=== PATIENT | female | born 1940 | race Hispanic/Latino ===

== ENCOUNTER 2020-09-16 16:30 | Inpatient (IN) | payer MEDICARE ==
[2020-09-21] MEDS ORDERED: Vancomycin 1 GM/200 ML BAG ONE (10:16)
[2020-09-21] MEDS ORDERED: Sodium Chloride 0.9% 100 ML ONE (10:16)
[2020-09-21] MEDS ORDERED: Tranexamic Acid 1,000 MG/10 ML VIAL ONE (10:16)
[2020-09-21] MEDS ORDERED: Fentanyl 100 MCG/2 ML VIAL ONE ×2 (11:03→11:58)
[2020-09-21] MEDS ORDERED: Midazolam HCl 2 mg/2 ml Vial ONE (11:03)
[2020-09-21] MEDS ORDERED: Fentanyl 100 MCG/2 ML VIAL IV PRN (11:46)
[2020-09-21] MEDS ORDERED: Bupivacaine 0.25% HCL 30 ML VIAL ONE (11:47)
[2020-09-21] MEDS ORDERED: EPINEPHrine 1 MG/ML AMP ONE (11:47)
[2020-09-21] MEDS ORDERED: Ropivacaine 0.2% 550 ML 550 ML NERVE BLCK SCH (12:00)
[2020-09-21] MEDS ORDERED: Zolpidem Tartrate 5 MG TAB PO PRN ×2 (12:00→14:08)
[2020-09-21] MEDS ORDERED: traMADol HCl 50 MG TAB PO PRN ×3 (12:00→14:08)
[2020-09-21] MEDS ORDERED: HYDROcodone/Acetaminophen 10/325 mg Tablet PO PRN ×3 (12:00→14:08)
[2020-09-21] MEDS ORDERED: Ondansetron PF 4 MG/2 ML Vial IVP PRN ×2 (12:00→14:08)
[2020-09-21] MEDS ORDERED: Promethazine HCl 25 MG/ML VIAL IM PRN ×3 (12:00→14:08)
[2020-09-21] MEDS ORDERED: Ketorolac Tromethamine 30 MG/ML VIAL ONE (12:06)
[2020-09-21] MEDS ORDERED: Dexamethasone 20 MG/5 ML VIAL ONE (12:06)
[2020-09-21] MEDS ORDERED: Ondansetron PF 4 MG/2 ML Vial ONE (12:06)
[2020-09-21] MEDS ORDERED: PROPOFOL 200 MG/20 ML VIAL ONE (12:06)
[2020-09-21] MEDS ORDERED: PHENYLEPHRINE-NS 100 MCG/ML 10 ML SYRINGE ONE (12:06)
[2020-09-21] MEDS ORDERED: Ropivacaine 2% HCl/PF (20 MG/10 ML VIAL) ONE (12:06)
[2020-09-21] MEDS ORDERED: Bupivacaine HCl 0.5%/Epinephrine 1:200,000/PF 30 ml Vial ONE (12:06)
[2020-09-21] MEDS ORDERED: ePHEDrine 50 MG/ML VIAL ONE (12:06)
[2020-09-21] MEDS ORDERED: Promethazine HCl 25 MG/ML VIAL IVPB PRN (13:41)
[2020-09-21] MEDS ORDERED: Ondansetron HCl/PF 4 MG/2 ML Vial IVP PRN (13:41)
[2020-09-21] MEDS ORDERED: diphenhydrAMINE 25 MG CAP PO PRN (14:08)
[2020-09-21] MEDS ORDERED: Acetaminophen 325 MG TAB PO PRN (14:08)
[2020-09-21] MEDS ORDERED: Fentanyl 100 MCG/2 ML VIAL SLOW IVP PRN ×2 (14:08)
[2020-09-21] MEDS: Dextrose 5 %-0.45 % NaCl 1,000 ML IV SCH (15:40)
[2020-09-21 17:07] VITALS: BMI 22.6
[2020-09-21] MEDS: CEFAZOLIN 2 GM in Premix Bag 1 BAG IVPB SCH (18:02)
[2020-09-21] MEDS: Aspirin 81 mg Enteric Coated Tablet PO SCH (20:34)
[2020-09-21] MEDS: Senokot S 8.6-50 MG TAB PO SCH (20:50)
[2020-09-21] MEDS: Ferrous Gluconate 324 MG TAB PO SCH (20:50)
[2020-09-21] MEDS ORDERED: Vancomycin 1 GM in Premix Bag 1 BAG IVPB SCH (22:00)
[2020-09-22] MEDS: CEFAZOLIN 2 GM in Premix Bag 1 BAG IVPB SCH (01:47)
[2020-09-22] MEDS: Dextrose 5 %-0.45 % NaCl 1,000 ML IV SCH ×3 (04:20→20:42)
[2020-09-22] MEDS: HYDROcodone/Acetaminophen 10/325 mg Tablet PO PRN ×2 (05:31→17:37)
[2020-09-22 06:09] LABS: Mean Corpuscular Hemoglobin 29.5 pg (27.0-31.0); Mean Corpuscular Volume 89.4 fL (78.0-98.0); Mean Platelet Volume 7.7 fL (7.4-10.4); Platelet Count 202 thou/uL (130-400); RBC Distribution Width 11.3 % (11.5-14.5); Red Blood Cell (RBC) Count 4.07 mill/uL (4.20-5.40); White Blood Cell (WBC) Count 14.9 thou/uL (4.8-10.8)
[2020-09-22] MEDS: Aspirin 81 mg Enteric Coated Tablet PO SCH ×2 (09:22→20:31)
[2020-09-22] MEDS: Multivitamin W/ Minerals 1 TAB PO SCH (09:22)
[2020-09-22] MEDS: Senokot S 8.6-50 MG TAB PO SCH ×2 (09:22→20:42)
[2020-09-22] MEDS: Ferrous Gluconate 324 MG TAB PO SCH ×2 (09:22→20:32)
[2020-09-23 06:02] LABS: Hemoglobin 11.6 g/dL (12.0-16.0); Mean Corpuscular HGB CONC 34.2 g/dL (32.0-36.0); Mean Corpuscular Hemoglobin 30.9 pg (27.0-31.0); Mean Corpuscular Volume 90.5 fL (78.0-98.0); Mean Platelet Volume 7.7 fL (7.4-10.4); Platelet Count 178 thou/uL (130-400); RBC Distribution Width 11.7 % (11.5-14.5); Red Blood Cell (RBC) Count 3.75 mill/uL (4.20-5.40); White Blood Cell (WBC) Count 11.2 thou/uL (4.8-10.8)
[2020-09-23] MEDS: Dextrose 5 %-0.45 % NaCl 1,000 ML IV SCH (07:47)
[2020-09-23] MEDS: Aspirin 81 mg Enteric Coated Tablet PO SCH (09:13)
[2020-09-23] MEDS: Multivitamin W/ Minerals 1 TAB PO SCH (09:13)
[2020-09-23] MEDS: Senokot S 8.6-50 MG TAB PO SCH (09:13)
[2020-09-23] MEDS: Ferrous Gluconate 324 MG TAB PO SCH (09:13)
[2020-09-23 11:22] VITALS: BP 96/52; TEMP 98.9
== END 2020-09-23 12:36 | disposition home or self-care (01) | DRG 470 ==
LOC: SURG A 09-21 08:13 → SURG B 09-21 15:03 → EDSTATUS 09-21 16:30
PROVIDERS: ADMIT Orthopaedic Surgery; ATTEND Orthopaedic Surgery
PROC: 0SRC0J9 Replacement of Right Knee Joint with Synthetic Substitute, Cemented, Open Approach (ICD-10-PCS; principal; 2020-09-21)
DX: M17.11 Unilateral primary osteoarthritis, right knee (principal); I10 Essential (primary) hypertension; Z90.710 Acquired absence of both cervix and uterus; Z79.899 Other long term (current) drug therapy
CPT/HCPCS: 36415; 85027; A4306; C1713; C1776; J0171; J0690; J1100; J1885; J2250; J2405; J2704; J2795; J3010; J3370; J3490; S0020